=== PATIENT | female | born 1960 | race Caucasian/White ===

== ENCOUNTER 2021-10-17 08:32 | Outpatient (CLI) | payer BC, SELFPAY ==
[2021-10-17 10:22] LABS: Cholesterol* 240 mg/dL (90-199)
[2021-10-17 10:23] LABS: Triglycerides* 43 mg/dL (40-149)
[2021-10-17 10:31] LABS: HDL Cholesterol* 129 mg/dL (>=50); LDL Cholesterol Calculated 102 mg/dL (<100)
[2021-10-17 14:02] LABS: Glucose* 96 mg/dL (60-115)
== END 2021-10-17 08:33 | disposition home or self-care (01) ==
PROVIDERS: PCP Family Medicine; Visit Provider Physician Assistant
DX: Z01.419 Encounter for gynecological examination (general) (routine) without abnormal findings (principal); Z13.6 Encounter for screening for cardiovascular disorders; Z13.1 Encounter for screening for diabetes mellitus
CPT/HCPCS: 80061; 82947

== ENCOUNTER 2023-04-05 13:08 | Outpatient (CLI) | payer BC, SELFPAY ==
--- NOTE | 2023-04-05 13:20 | CRLHL7_ITS ---
For Patients: As a result of the Century Cures Act, medical imaging exams and procedure reports are released immediately into your electronic medical record. You may view this report before your referring provider. If you have questions, please contact your health care provider. BILATERAL SCREENING MAMMOGRAM WITH COMPUTER-AIDED DETECTION AND TOMOSYNTHESIS TECHNIQUE: CC and MLO views were obtained. These mammographic images have been obtained using full-field digital technique. These mammographic images were interpreted with the benefit of computer-aided detection. Breast Tomosynthesis was used in this interpretation. COMPARISON FILM: 12/12/20, 09/29/19, 06/17/16. FINDINGS: The breasts are heterogeneously dense, which may obscure small masses IMPRESSION: There is no radiographic evidence for malignancy. ASSESSMENT: BI-RADS Category 1: Negative RECOMMENDATION: Routine screening mammogram in 1 year. A lay language report of this examination will be provided to the patient. Terry Lowery M.D. Diagnostic Radiologist [email or web address] BRIE/Dictated by: Terry Lowery MD @ 04/06/2023 9:45:00 AM (Electronically Signed)
== END 2023-04-05 13:09 | disposition home or self-care (01) ==
LOC: MAMMO 13:09
PROVIDERS: PCP Family Medicine; Visit Provider Physician Assistant
DX: Z12.31 Encounter for screening mammogram for malignant neoplasm of breast (principal); R92.2 Inconclusive mammogram
CPT/HCPCS: 77063; 77067